=== PATIENT | male | born 1995 | race Caucasian/White ===

== ENCOUNTER 2017-06-13 18:12 | Emergency (ER) | payer OTHER ==
[2017-06-13 18:17] VITALS: BP 145/87; PULSE 79; RESP 17; TEMP 98.4
--- NOTE | 2017-06-13 18:32 | ED ---
General Adult HPI - General Chief complaint: Skin/Abscess/Foreign Body Stated complaint: Allergic reaction Time Seen by Provider: 06/13/17 18:18 Source: patient, RN notes reviewed Mode of arrival: ambulatory Limitations: no limitations - History of Present Illness Initial comments: 22 yo male presents to the ER with cc of of rash to the trunk. 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 He states he noticed little bit of a rash and a little bit of throat tightness with this. He states he went home he is been using the Benadryl and Motrin without much improvement. Denies any new soaps or conditioners at home. He denies any difficulty breathing. He states that he continues to have the rash they thought that he should be seen. Patient states it is itchy. Patient denies any other symptoms.Patient denies any recent fever, chills, shortness of breath , chest pain, back pain, abdominal pain, nausea vomiting, numbness or tingling, dysuria or hematuria, constipation or diarrhea, headaches or visual changes, or any other current symptoms. - Related Data Previous Rx's Medication Instructions Recorded Famotidine [Pepcid] 20 mg PO BID #10 tablet 06/13/17 diphenhydrAMINE [Benadryl] 50 mg PO HS PRN #5 capsule 06/13/17 predniSONE 50 mg PO DAILY #5 tab 06/13/17 Allergies Allergy/AdvReac Type Severity Reaction Status Date / Time No Known Allergies Allergy Verified 06/13/17 18:17 Review of Systems ROS Statement: Those systems with pertinent positive or pertinent negative responses have been documented in the HPI. ROS Other: All systems not noted in ROS Statement are negative. Past Medical History Past Medical History: No Reported History History of Any Multi-Drug Resistant Organisms: None Reported Past Surgical History: No Surgical Hx Reported Past Psychological History: No Psychological Hx Reported Smoking Status: Never smoker Past Alcohol Use History: Occasional Past Drug Use History: None Reported General Exam Limitations: no limitations General appearance: alert, in no apparent distress ENT exam: Present: normal exam, mucous membranes moist Neck exam: Present: normal inspection. Absent: tenderness, meningismus, lymphadenopathy Respiratory exam: Present: normal lung sounds bilaterally. Absent: respiratory distress, wheezes, rales, rhonchi, stridor Cardiovascular Exam: Present: regular rate, normal rhythm, normal heart sounds. Absent: systolic murmur, diastolic murmur, rubs, gallop, clicks Extremities exam: Present: normal inspection, full ROM, normal capillary refill. Absent: tenderness, pedal edema, joint swelling, calf tenderness Back exam: Present: normal inspection Neurological exam: Present: alert, oriented X3 Psychiatric exam: Present: normal affect, normal mood Skin exam: Present: warm, dry, intact, urticaria (diffuse) Course Vital Signs 06/13/17 18:15 Temperature 98.4 F Pulse Rate 79 Respiratory 17 Rate Blood Pressure 145/87 O2 Sat by Pulse 100 Oximetry Medical Decision Making - Medical Decision Making 22-year-old male presents for an urticarial type rash. This time is numb exposure to possible at work. At this time we did discuss possible other etiologies what to look for follow-up return for hours all questions. Patient state Cezar is given this plan. This and we will be discharged. Disposition Clinical Impression: Urticaria Disposition: HOME SELF-CARE Condition: Stable Instructions: Urticaria (ED) Additional Instructions: Please use medication as discussed. Please follow up with family doctor if symptoms have not improved over the next two days. Please return to the emergency room if your symptoms increase or worsen or for any other concerns. Prescriptions: diphenhydrAMINE [Benadryl] 50 mg PO HS PRN #5 capsule PRN Reason: Itching Famotidine [Pepcid] 20 mg PO BID #10 tablet predniSONE 50 mg PO DAILY #5 tab Referrals: Arpit Cody DO [STAFF PHYSICIAN] - 1-2 days Time of Disposition: 18:31
== END 2017-06-13 18:43 | disposition home or self-care (01) ==
LOC: EC 18:12
DX: L50.9 Urticaria, unspecified (principal)
CPT/HCPCS: 99283

== ENCOUNTER → 2019-11-27 | Outpatient (CLI) | payer OTHER, BC | END | disposition home or self-care (01) | LOC: LABMAIN 20:06 | PROVIDERS: ATTEND Family Medicine | DX: Z03.818 Encounter for observation for suspected exposure to other biological agents ruled out (principal) ==

== ENCOUNTER → 2020-08-10 | Outpatient (CLI) | payer BC ==
--- NOTE | 2020-08-10 13:27 | US ---
EXAMINATION TYPE: US abdomen complete DATE OF EXAM: 08/10/2020 COMPARISON: NONE CLINICAL HISTORY: 25-year-old male R93.89. Patient states "Cyst on liver was seen on MRI." MRI was d one at [facility]. TECHNIQUE: Multiple sonographic images of the abdomen are obtained. FINDINGS: EXAM MEASUREMENTS: Liver Length: 15.7 cm Gallbladder Wall: 0.1 cm CBD: 0.2 cm Spleen: 11.6 cm Right Kidney: 10.8 x 7.5 x 4.1 cm Left Kidney: 11.9 x 4.9 x 4.5 cm Pancreas: Only portions of the pancreatic body are visualized. Remainder is obscured by bowel gas sh adowing. Liver: Normal size and homogeneous appearance. No focal lesion or cyst is seen. Gallbladder: No stones seen Evidence for sonographic Gomez's sign: No CBD: wnl Spleen: wnl Right Kidney: No hydronephrosis or masses seen Left Kidney: No hydronephrosis or masses seen Upper IVC: wnl Abd Aorta: wnl IMPRESSION: 1. Unable to identify a discrete lesion within the liver by ultrasound. The patient's outside exam sh ould be reviewed. If a lesion is felt to be present, dedicated liver MRI follow-up may be indicated. 2. No gallstones or biliary ductal dilatation.
== END | disposition home or self-care (01) ==
LOC: RADUSWWP 07:51
PROVIDERS: ATTEND Family Medicine
DX: R93.89 Abnormal findings on diagnostic imaging of other specified body structures (principal)
CPT/HCPCS: 76700

== ENCOUNTER → 2022-09-21 | Outpatient (CLI) | payer BC ==
--- NOTE | 2022-09-21 16:23 | P.SLEEP ---
History of Present Illness DATE: 09/21/2022 CONSULTATION/NEW PATIENT EVALUATION HISTORY OF PRESENT ILLNESS/SLEEP-WAKE EVALUATION: 27 year old gentleman had been evaluated in the sleep center for possible obstructive sleep apnea hypopnea syndrome. Home sleep apnea test which was done in another institution in June 2022 was negative for obstructive sleep apnea hypopnea syndrome. SLEEP SCHEDULE: Usually sleep schedule from 7 AM until 1 PM on working days and from 2 AM until 10 AM on weekend. 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 FALLING ASLEEP: Sometimes patient has difficulties to fall asleep, no TV in bedroom. DURING SLEEP: Patient sleeps usually on the back position with loud snoring and witnessed episodes of stop breathing during the sleep. Patient wakes up from sleep 2 times with gasping for air and dry mouth, usually does not need to use the restroom at night. Positive history of possible of hypnogogical hallucinations, history of sleep paralysis in the past, no cataplexy. DURING THE DAY/WAKE STATE: In the morning patient wake up tired. Lincoln sleepiness scale is 5. Patient doesn't take naps. PAST MEDICAL HISTORY: Sciatica nerve problems. PAST SURGICAL HISTORY: Nerve block procedure. MEDICATIONS: None. SOCIAL HISTORY: Smokes very rarely, alcohol consumption occasional. FAMILY HISTORY: Hypertension, heart problems, hyperlipidemia, diabetes. REVIEW OF SYSTEMS: Loud snoring, witnessed episodes of stop breathing during the sleep. No fevers. No double vision. No recent chest pain. No shortness of breath. No abdominal pain. No bleeding episodes. No blood in urine. No seizure episodes. PHYSICAL EXAMINATION: GENERAL: A pleasant patient without any distress. VITAL SIGNS: BP 152/81 , HR 70 , RR 12 , weight 227.6 pounds, height 5 foot 11 inches, body mass index 31.9 . HEENT: PERRLA, EOMI. Evaluation of oropharynx showed tongue protrudes midline, low position of soft palate Mallampati 23, wide pillars. NECK: Supple. No JVD. Thyroid is not palpable. 15.5 inches in circumference. LUNGS: Clear to percussion and to auscultation. Good air exchange. No wheezing or rhonchi. HEART: S1, S2 regular. No murmurs, gallops or rubs. ABDOMEN: Soft and nontender. Bowel sounds are present. No organomegaly appreciated. EXTREMITIES: No clubbing or cyanosis. 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 Cranial nerves 2 to 7 intact. There is no fasciculation or atrophy noted. No focal deficits observed. ASSESSMENT: 1. Loud snoring, witnessed episodes of stop breathing during the sleep, awakenings from sleep with gasping for air and dry mouth, wide pillars. Obstructive sleep apnea hypopnea syndrome. 2. Mild obesity fallowing body mass index 31.9. 3. History of sciatica nerve problems, status post nerve block. 4. History of acid reflux. 5 history of sleep paralysis in the past. 6 . Sleep talking. PLAN: 1. Polysomnography for evaluation of patient's breathing during sleep. 2. Following plan after reading sleep test 3. Preferable position during sleep on the side. 4. No driving if patient feels any sleepiness. Patient is aware of civil and criminal liability for unsafe driving. 5. Sleep hygiene with regular sleep time for at least 7.5-8 hours. 6. Watching weight. Thank you very much for referring this patient for consultation. Sincerely, Michael Powers MD, PhD, FAASM. Diplomat of [place] [employer], Sleep Medicine Board by [place] [employer] [place] [employer] of [facility] [place] Past Medical History Past Medical History: No Reported History History of Any Multi-Drug Resistant Organisms: None Reported Past Surgical History: No Surgical Hx Reported Past Psychological History: No Psychological Hx Reported Past Alcohol Use History: Occasional Past Drug Use History: None Reported Medications and Allergies Home Medications Medication Instructions Recorded Confirmed Type Famotidine [Pepcid] 20 mg PO BID #10 tablet 06/13/17 Rx diphenhydrAMINE [Benadryl] 50 mg PO HS PRN #5 capsule 06/13/17 Rx predniSONE 50 mg PO DAILY #5 tab 06/13/17 Rx Allergies Allergy/AdvReac Type Severity Reaction Status Date / Time No Known Allergies Allergy Verified 06/13/17 18:17 Sleep Note - Sleep Note Sleep Note: Temperature: Pulse Rate: Respiratory Rate: Blood Pressure: SpO2: Height: Weight: BMI: Neck Circumference:
== END ==
LOC: SLEEP 15:56
PROVIDERS: ATTEND Internal Medicine
DX: G47.33 Obstructive sleep apnea (adult) (pediatric) (principal); E66.9 Obesity, unspecified; Z68.31 Body mass index [BMI] 31.0-31.9, adult; Z98.890 Other specified postprocedural states; K21.9 Gastro-esophageal reflux disease without esophagitis; R51.9 Headache, unspecified; B37.42 Candidal balanitis; Z68.30 Body mass index [BMI] 30.0-30.9, adult; M47.816 Spondylosis without myelopathy or radiculopathy, lumbar region; R93.89 Abnormal findings on diagnostic imaging of other specified body structures; J45.909 Unspecified asthma, uncomplicated; G47.8 Other sleep disorders; Z86.69 Personal history of other diseases of the nervous system and sense organs
CPT/HCPCS: 99211

== ENCOUNTER 2022-10-31 07:30 | Outpatient (CLI) | payer BC | END 2022-10-31 16:30 | disposition home or self-care (01) | LOC: 3 N SLEEP 07:30 | PROVIDERS: ATTEND Internal Medicine | DX: G47.33 Obstructive sleep apnea (adult) (pediatric) (principal) | CPT/HCPCS: 95810 ==

== ENCOUNTER → 2023-03-22 | Outpatient (CLI) | payer BC ==
--- NOTE | 2023-03-22 16:19 | P.PN ---
Subjective DATE: 03/22/2023 FOLLOW UP VISIT. Patient with obstructive sleep apnea hypopnea syndrome return to sleep center for follow-up visit. Recently patient had sleep study which documented obstructive sleep apnea hypopnea syndrome. Patient was initiated on PAP therapy and today is first visit after treatment was started. Patient was able to use PAP equipment every night for the whole night. The patient does not have significant problems with the mask, PAP pressure and humidification. Spencer sleepiness scale is 6, which is normal. Patient feels better after starting to use CPAP equipment. I checked information from PAP unit. PAP unit pressure 5-14, average 8.7 cm H2O. Usage is 97% and 77 % for more then 4 hours, average 5.75 hours per night. Leak is 9.0 l/m, which is in acceptable range. Apnea Hypopnea Index is 1.6, which is normal. MEDICATIONS: None During physical exam: GENERAL: A pleasant patient without any distress. VITAL SIGNS: BP 119/72, HR 56, RR 16 , weight 238.8, temperature 94.3, oxygen saturation at room air 96% . HEENT: PERRLA, EOMI.low position of soft palate, Mallapati 2-3 . NECK: Supple. No JVD. LUNGS: Clear to percussion and to auscultation. Good air exchange. No wheezing or rhonchi. HEART: S1, S2 regular. ABDOMEN: Soft and nontender.[] EXTREMITIES: No clubbing or cyanosis. 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 No focal deficit. Impressions: 1. Obstructive sleep apnea-hypopnea syndrome. Patient demonstrated great compliance with treatment, benefiting from treatment. 2. Mild obesity, patient increased weight on 11 pounds comparing with previous visit. 3. History of acid reflux. 4. History of sciatica and off problems, status post nerve block. 5. History of sleep paralysis in the past.. Plan: 1. Continue using PAP equipment every night for the whole night. 2. To change air filter at least 1-2 times per month. 3. PAP unit should stay lower then position of the head. 4. Advised patient to remove all remaining water from humidifier canister daily and make it dry after each usage. Refill canister with fresh distilled water before each usage. 5. Sleep hygiene with regular time in bed for at least 8 hours. 6. Precautions related to driving. No driving if feel any sleepiness. 7. I will maintain prescription for PAP supplies including mask, tube, filters. 8. Follow up visit in 6 months or earlier if patient has any problems. 9. Watching weight. Thank you very much for allowing me to participate in the management of your patient. Michael Powers MD, PhD, FAASM. Diplomat of [place] [employer], Sleep Medicine Board by [place] [employer] Enforcement Officer of [facility] [place]
== END ==
LOC: 3 N SLEEP 15:16
PROVIDERS: ATTEND Internal Medicine
DX: E66.9 Obesity, unspecified (principal); K21.9 Gastro-esophageal reflux disease without esophagitis; M54.30 Sciatica, unspecified side; G47.53 Recurrent isolated sleep paralysis; Z99.89 Dependence on other enabling machines and devices; G47.33 Obstructive sleep apnea (adult) (pediatric)
CPT/HCPCS: 99212

== ENCOUNTER → 2023-10-31 | Outpatient (CLI) | payer BC ==
[2023-10-31 16:51] VITALS: BP 142/72; PULSE 69; RESP 16; TEMP 98
== END ==
LOC: 3 N SLEEP 15:46
PROVIDERS: ATTEND Internal Medicine
DX: Z53.9 Procedure and treatment not carried out, unspecified reason (principal)
CPT/HCPCS: 99212

== ENCOUNTER 2024-09-11 15:36 | Emergency (ER) | payer BC, OTHER ==
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
[2024-09-11 15:55] VITALS: BP 135/94; PULSE 74; RESP 16; TEMP 98.3
== END 2024-09-11 16:08 | disposition home or self-care (01) ==
LOC: EC 15:36
DX: S30.811A Abrasion of abdominal wall, initial encounter (principal); V89.2XXA Person injured in unspecified motor-vehicle accident, traffic, initial encounter
CPT/HCPCS: 99284